=== PATIENT | female | born 1940 | race Caucasian/White ===

== ENCOUNTER 2018-06-26 06:35 | Inpatient (IN) | payer MEDICARE ==
[~2018-06-26] VITALS: Ht 162.6 cm; Wt 60.7 kg
[~2018-06-26 06:35] MED LIST: ESTR42.53 VG; LOSA25TA6 PO; METO25TA91 PO; SIMV20TA3 PO
[2018-06-26] MEDS ORDERED: BUPIVACAINE/PF-EPI 0.5% 1:200K ONE (06:56)
[2018-06-26] MEDS ORDERED: LACTATED RINGERS 1,000 ML IV SCH (07:36)
[2018-06-26] MEDS ORDERED: ACETAMINOPHEN 500 MG TABLET PO STA (07:38)
[2018-06-26] MEDS ORDERED: ONDANSETRON ODT 8 MG PO STA (07:38)
[2018-06-26] MEDS ORDERED: FENTANYL PF 100 MCG/2ML ONE ×2 (07:58→10:15)
[2018-06-26] MEDS ORDERED: PHENYLEPHRINE 10 MG/ML ONE (08:40)
[2018-06-26] MEDS ORDERED: SUCCINYLCHOLINE 20 MG/ML, 10ML ONE (08:40)
[2018-06-26] MEDS ORDERED: ROCURONIUM 10MG/ML,5ML ONE (08:40)
[2018-06-26] MEDS ORDERED: LIDOCAINE-MPF 2% ,5ML ONE (09:22)
[2018-06-26] MEDS ORDERED: DEXAMETHASONE 4 MG/ML, 1ML ONE (09:22)
[2018-06-26] MEDS ORDERED: PROPOFOL 10 MG/ML, 20ML ONE (09:22)
[2018-06-26] MEDS ORDERED: CEFAZOLIN 1,000 MG ONE (09:22)
[2018-06-26] MEDS ORDERED: MIDAZOLAM 1 MG/ML, 2ML IV PRN (09:30)
[2018-06-26] MEDS ORDERED: METOPROLOL 1 MG/ML, 5ML IV PRN (09:30)
[2018-06-26] MEDS ORDERED: HYDROmorphone 2 MG/ML, 1ML IVPush PRN (09:30)
[2018-06-26] MEDS ORDERED: ONDANSETRON 2MG/ML, 2ML IV PRN (09:30)
[2018-06-26] MEDS ORDERED: hydrALAzine 20 MG/ML, 1ML IV PRN ×2 (09:30→13:30)
[2018-06-26] MEDS ORDERED: PROMETHAZINE 25 MG/ML, 1ML IV PRN (09:30)
[2018-06-26] MEDS ORDERED: FENTANYL PF 100 MCG/2ML IV PRN (09:30)
[2018-06-26] MEDS ORDERED: MEPERIDINE/PF 25MG/0.5ML IVPush PRN (09:30)
[2018-06-26] MEDS ORDERED: ALBUTEROL/IPRATROPIUM 2.5MG/0.5MG, 3 ML NPPB PRN (09:30)
[2018-06-26 10:24] LABS: 10MIN %DROP IOPTH 41 %; 5MIN %DROP IOPTH 38 %; IOPTH BASELINE 101 pg/mL; SAMPLE 5 %DROP IOPTH 45 %
[2018-06-26] MEDS ORDERED: OXYcodone 5 MG/5 ML ORAL.SOL UDC ONE ×2 (11:18→12:03)
[2018-06-26] MEDS ORDERED: hydrALAzine 20 MG/ML, 1ML ONE (11:18)
[2018-06-26] MEDS: OXYcodone 5 MG/5 ML ORAL.SOL UDC PO PRN ×2 (11:24→12:06)
[2018-06-26 13:03] VITALS: BP 144/76
[2018-06-26] MEDS: HYDROcodone/APAP 5/325 TABLET PO PRN (13:24)
[2018-06-26] MEDS ORDERED: ACETAMINOPHEN 650 MG SUPP PR PRN (13:30)
[2018-06-26] MEDS ORDERED: ACETAMINOPHEN 325 MG TABLET PO PRN (13:30)
[2018-06-26] MEDS: CALCIUM/VITAMIN D3 250-125 TABLET PO SCH ×2 (16:48→20:30)
[2018-06-26 19:35] VITALS: BP 154/77
[2018-06-26] MEDS: SODIUM CHLORIDE FLUSH 10ML SYR IVF SCH (20:30)
[2018-06-26] MEDS ORDERED: METOPROLOL SUCCINATE 25 MG TAB.ER.24H PO SCH (21:00)
[2018-06-26] MEDS ORDERED: ESTRADIOL 10 MCG HOMEVAG SCH (21:00)
[2018-06-26] MEDS ORDERED: LOSARTAN 25MG TABLET PO SCH (21:00)
[2018-06-27 00:10] VITALS: BP 127/63
[2018-06-27] MEDS: HYDROcodone/APAP 5/325 TABLET PO PRN ×2 (02:43→07:31)
[2018-06-27 03:03] VITALS: BP 154/70
[2018-06-27 06:41] VITALS: BP 122/62
[2018-06-27] MEDS: CALCIUM/VITAMIN D3 250-125 TABLET PO SCH (07:31)
[2018-06-27] MEDS: SODIUM CHLORIDE FLUSH 10ML SYR IVF SCH (07:32)
[2018-06-27] MEDS ORDERED: HYDR-3240 PO (09:38)
== END 2018-06-27 10:08 | disposition home or self-care (01) | DRG 627 ==
LOC: OUT 06:35 → 4NOR 12:15 → OUT 13:12 → DCLOUNGE 06-27 09:52
PROVIDERS: ADMIT Surgery; ATTEND Surgery
PROC: 0GBL0ZZ Excision of Right Superior Parathyroid Gland, Open Approach (ICD-10-PCS; 2018-06-26)
PROC: 0GBN0ZZ Excision of Right Inferior Parathyroid Gland, Open Approach (ICD-10-PCS; 2018-06-26)
PROC: 07B10ZX Excision of Right Neck Lymphatic, Open Approach, Diagnostic (ICD-10-PCS; 2018-06-26)
PROC: 4A11X4G Monitoring of Peripheral Nervous Electrical Activity, Intraoperative, External Approach (ICD-10-PCS; 2018-06-26)
PROC: 0GBP0ZZ Excision of Left Inferior Parathyroid Gland, Open Approach (ICD-10-PCS; principal; 2018-06-26 08:45)
DX: E21.0 Primary hyperparathyroidism (principal); M54.9 Dorsalgia, unspecified; I10 Essential (primary) hypertension; E04.1 Nontoxic single thyroid nodule; J45.909 Unspecified asthma, uncomplicated; Z88.1 Allergy status to other antibiotic agents; Z88.0 Allergy status to penicillin; Z88.2 Allergy status to sulfonamides; Z90.49 Acquired absence of other specified parts of digestive tract; Z88.8 Allergy status to other drugs, medicaments and biological substances; Z82.5 Family history of asthma and other chronic lower respiratory diseases; Z82.3 Family history of stroke; Z82.49 Family history of ischemic heart disease and other diseases of the circulatory system
CPT/HCPCS: 36415; 83970; 88305; 88331; 93005; G0378; J0690; J1100; J2704; J3010; J3490; Q0162; C1760; J0330; J0360; J2370; J7120